=== PATIENT | male | born 1980 | race African-American/Black ===

== ENCOUNTER 2017-06-06 18:45 | Emergency (ER) | payer OTHER ==
[~2017-06-06] VITALS: Ht 175.3 cm; Wt 89.1 kg
[~2017-06-06 18:45] MED LIST: ALBUTEROL SULF8.5 GM IH; AMOXICILLIN875 MG PO; BACTRIM,SEPT1 TABLET PO; BENTYL20 MG PO; CARAFATE1 GM PO; COLACE100 MG PO; FLONASE16 G1 BOTH NARES; KEFLEX500 MG PO; MAALOX ADVANCE1 EACH; MAALOX1 ML PO; MECLIZINE HCL25 MG PO; NEXIUM 24HR20 M1 PO; NEXIUM40 MG PO; OMEPRAZOLE; OMEPRAZOLE40 M1 PO; PEPCID20 MG PO; PREDNISONE50 MG PO; PROTONIX40 MG PO; RANITIDINE HCL150 MG PO; TESSALON PERLE100 MG PO; VALIUM5 MG PO; VITAMIN C W/AC500 M1 PO; ZANTAC15 MG/ML PO; ZANTAC150 MG PO
[2017-06-06 19:35] LABS: HEMATOCRIT 47.6 % (38.0-50.0); MCH 30.3 PG (29.0-34.0); MCV 89.1 FL (86-99); MEAN PLAT.VOLUME 9.6 uM^3 (9.0-12.4); PLATELET COUNT 239 K/uL (156-360); RBC DIS.WIDTH-CV 12.8 % (11.8-14.6); RBC DIS.WIDTH-SD 41.9 % (39-53); RED BLOOD COUNT 5.34 M/uL (4.00-5.50); WHITE BLOOD COUNT 6.7 K/uL (4.1-10.2)
[2017-06-06 19:45] LABS: CHLORIDE 103 mEq/L (99-109); POTASSIUM 4.4 mEq/L (3.7-5.4); SODIUM 140 mEq/L (136-147)
[2017-06-06 19:46] LABS: GLUCOSE 90 mg/dL (70-99)
[2017-06-06 19:48] LABS: ANION GAP 12 MEQ/L (2-14)
[2017-06-06 19:50] LABS: GFR ESTIMATE (CALCULATED) > 59 mL/min/
[2017-06-06 19:51] LABS: UREA NITROGEN (BUN) 10 mg/dL (9-23)
[2017-06-06 19:58] LABS: TROP-I INTERPRETATION NEGATIVE; TROPONIN-I < 0.01 ng/mL (0.0-0.30)
[2017-06-06 21:41] LABS: ADD MIUA? YES; BILIRUBIN NEGATIVE; BLOOD NEGATIVE; COLOR YELLOW ((YELLOW)); GLUCOSE (STRIP) NEGATIVE; KETONES NEGATIVE; LEUKOCYTES NEGATIVE; NITRITE NEGATIVE; PROTEIN (STRIP) NEGATIVE; SPECIFIC GRAVITY 1.018 (1.000-1.030)
[2017-06-06 21:47] LABS: BACTERIA RARE /HPF; EPITHELIAL CELLS RARE /HPF; MUCUS TRACE /LPF; RED BLOOD CELLS 0-5 /HPF (0-5); UCUL ADDED? NO; WHITE BLOOD CELLS 0-5 /HPF (0-5)
[2017-06-06 22:00] LABS: TOTAL BILIRUBIN 0.8 mg/dL (0.0-1.0)
[2017-06-06 22:01] LABS: ALKALINE PHOSPHATASE 80 IU/L (3-129)
[2017-06-06 22:04] LABS: DIRECT BILIRUBIN 0.4 mg/dL (0.0-0.3)
[2017-06-06 22:05] LABS: LIPASE 16 U/L (1.0-51.0)
[2017-06-06] MEDS ORDERED: ZOFRAN4 MG PO (22:38)
[2017-06-06] MEDS ORDERED: BENTYL10 MG PO (22:38)
[2017-06-06 22:52] VITALS: BP 135/75
== END 2017-06-06 22:53 | disposition home or self-care (01) ==
LOC: EXP 18:45 → EME 18:45 → EXP 22:53
PROVIDERS: Physician Assistant
DX: R10.9 Unspecified abdominal pain (principal); M54.9 Dorsalgia, unspecified; R11.0 Nausea; R42 Dizziness and giddiness; R07.0 Pain in throat; R06.02 Shortness of breath; R00.1 Bradycardia, unspecified; N18.9 Chronic kidney disease, unspecified
CPT/HCPCS: 71020; 74176; 80048; 80076; 81003; 83690; 84484; 85027; 93005; 99281; 99284